=== PATIENT | male | born 1975 | race Caucasian/White ===

== ENCOUNTER 2017-08-30 23:15 | Inpatient (IN) | payer MEDICAID, OTHER ==
[~2017-08-30] VITALS: Ht 162.6 cm; Wt 76.4 kg
[2017-08-30] MEDS ORDERED: normal saline 1000ML IV soln IV ONE ×2 (23:35→23:45)
[2017-08-30] MEDS ORDERED: ondansetron/PF 4mg/2ml inj IV ONE (23:35)
[2017-08-30] MEDS ORDERED: morphine 4 MG/ML inj SYRINge IV ONE (23:35)
[2017-08-30] MEDS ORDERED: pantoprazole 40 MG vial IV ONE ×2 (23:35→23:45)
[2017-08-30] MEDS ORDERED: famotidine/PF 10 mg/ml inj IV ONE (23:45)
[2017-08-30] MEDS ORDERED: octreotide inj. 1,250 MCG in normal saline 250ml IV soln 250 ML IV ONE (23:45)
[2017-08-30 23:57] LABS: BASOPHILS % (AUTO) 0.1 % (0-1); EOSINOPHILS % (AUTO) 0 % (0-6); HEMATOCRIT 54.5 % (42.0-52.0); LYMPHOCYTES # (AUTO) 0.4 X10'3 (1.1-4.8); LYMPHOCYTES % (AUTO) 2.1 % (21-51); MEAN CORPUSCULAR HEMOGLOBIN 29.2 PG (27.0-31.0); MEAN CORPUSCULAR HGB CONC 34.1 % (33.0-36.5); MEAN CORPUSCULAR VOLUME 85.6 FL (78-98); MONOCYTES # (AUTO) 0.2 X10'3 (0-0.9); MONOCYTES % (AUTO) 1.2 % (2-12); NEUTROPHILS # (AUTO) 18.5 X10'3 (1.8-7.7); NEUTROPHILS % (AUTO) 96.6 % (42-75); PLATELET COUNT 241 X10'3 (140-440); RED BLOOD COUNT 6.37 X10'6 (4.70-6.10); RED CELL DISTRIBUTION WIDTH 13.6 % (11.5-14.5); WHITE BLOOD COUNT 19.1 X10'3 (4.5-11.0)
[2017-08-31] VITALS (9 sets, daily range): BP systolic 143–160; BP diastolic 72–98
[2017-08-31 00:07] LABS: HEMOGLOBIN 18.6 g/dl (14.0-17.9)
[2017-08-31 00:08] LABS: INR 1.1 INR; PARTIAL THROMBOPLASTIN TIME 27 SECONDS (22-32); PROTHROMBIN TIME 10.9 SECONDS (9.0-12.0)
[2017-08-31 00:11] LABS: ALANINE AMINOTRANSFERASE 34 U/L (12-78); ALBUMIN 3.9 G/DL (3.4-5.0); ALBUMIN/GLOBULIN RATIO 0.8 (1.1-1.5); ALKALINE PHOSPHATASE 99 IU/L (46-116); ANION GAP 10 (8-16); ASPARTATE AMINO TRANSFERASE 13 U/L (10-37); BILIRUBIN,TOTAL 0.5 MG/DL (0.1-1.0); BLOOD UREA NITROGEN 20 MG/DL (7-18); BUN/CREATININE RATIO 14.6 (5.4-32.0); CALCIUM 9.7 MG/DL (8.5-10.1); CHLORIDE 99 MMOL/L (99-107); CREATININE 1.37 MG/DL (0.60-1.10); GLUCOSE 152 MG/DL (70-104); LIPASE 78 U/L (73-393); MAGNESIUM 2.1 MG/DL (1.5-2.4); POTASSIUM 3.3 MMOL/L (3.5-5.1); SODIUM 141 MMOL/L (135-145); TOTAL CARBON DIOXIDE 31.9 MMOL/L (24-32); eGFR 58 ML/MIN
[2017-08-31] MEDS ORDERED: octreotide 200mcg/ml 5ml vial ONE ×2 (00:20→23:55)
[2017-08-31] MEDS: pantoprazole 40MG/NS 100ML BAG 100 ML IV SCH ×6 (00:41→23:33)
[2017-08-31] MEDS ORDERED: pantoprazole 40MG/NS 100ML BAG 100 ML IV SCH (01:00)
[2017-08-31] MEDS ORDERED: NO HOME MEDS (01:14)
[2017-08-31] MEDS ORDERED: HYDROmorphone 1 mg/ml syringe IV ONE ×2 (04:20→10:00)
[2017-08-31] MEDS ORDERED: mag hydrox/Alum hydrox/simeth 30ml oral suspension PO PRN (04:20)
[2017-08-31] MEDS ORDERED: acetaminophen 325mg tablet PO PRN ×2 (04:20)
[2017-08-31] MEDS ORDERED: HYDROmorphone inj. 0.5 MG/0.5 ML DISP.SYRIN IV PRN ×2 (04:20)
[2017-08-31] MEDS ORDERED: ondansetron/PF 4mg/2ml inj IV PRN (04:20)
[2017-08-31] MEDS ORDERED: magnesium hydroxide 30ml (MOM) UD suspension PO PRN (04:20)
[2017-08-31] MEDS: normal saline 1000ml 1,000 ML IV SCH ×3 (04:24→21:03)
[2017-08-31] MEDS ORDERED: potassium Cl 10 mEq/100mL bag IV ONE (04:25)
[2017-08-31] MEDS ORDERED: potassium Cl 40MEQ/NS 500ml 500 ML IV PRN ×2 (04:25)
[2017-08-31] MEDS ORDERED: potassium Cl 20 mEq SR tablet PO PRN ×2 (04:25)
[2017-08-31 07:12] LABS: CLARITY,URINE CLEAR (Clear); COLOR,URINE YELLOW (Yellow); GLUCOSE, URINE NEGATIVE (Neg); KETONES,URINE 15 mg/dl (Neg); LEUKOCYTE ESTERASE ,URINE NEGATIVE (Neg); NITRITES, URINE NEGATIVE (Neg); OCCULT BLOOD,URINE NEGATIVE (Neg); PROTEIN,URINE 30 mg/dl (Neg)
[2017-08-31 07:15] LABS: UA COLLECTION TYPE VOIDED
[2017-08-31] MEDS ORDERED: HYDROmorphone 1 mg/ml syringe IV PRN ×2 (07:17→07:18)
[2017-08-31 07:20] LABS: BACTERIA,URINE NONE SEEN /HPF (Neg); HYALINE CASTS 0-3 /LPF (NEGATIVE); MUCUS STRANDS MODERATE /LPF (Neg); RBC,URINE 0-2 /HPF (0-2); SQUAMOUS EPITHELIAL CELL,UR FEW /LPF (FEW)
[2017-08-31 07:21] LABS: FINE GRANULAR CAST 0-3 /LPF (NEGATIVE); SPERM FEW /HPF (NEGATIVE)
[2017-08-31] MEDS ORDERED: LORazepam 2 mg/ml vial IV ONE (09:10)
[2017-08-31 09:49] LABS: URINE AMPHETAMINE SCREEN POSITIVE (Neg); URINE BARBITUATE SCREEN NEGATIVE (Neg); URINE BENZODIAZEPINES SCREEN NEGATIVE (Neg); URINE CANNABINOID SCREEN NEGATIVE (Neg); URINE COCAINE SCREEN NEGATIVE (Neg); URINE METHADONE SCREEN NEGATIVE (Neg); URINE OPIATE SCREEN POSITIVE (Neg); URINE PHENCYCLIDINE SCREEN NEGATIVE (Neg)
[2017-08-31] MEDS ORDERED: fentaNYL/PF 50MCG/1 ML 2ML syringe ONE (12:43)
[2017-08-31] MEDS ORDERED: MIDAZolam 5mg/5ml vial ONE (12:44)
[2017-08-31] MEDS ORDERED: LIDOcaine Viscous 15ml cup ONE (12:44)
[2017-08-31] MEDS ORDERED: diatrozoate meglu/diatrozoate sod (37% iodine) 120ML oral solution PO ONE (18:00)
[2017-08-31] MEDS: diatr meglu/diatrizoate 30ml oral sol.-(3 dose) bottle PO ONE ×2 (21:03→21:04)
[2017-09-01 03:00] VITALS: BP 139/94
[2017-09-01] MEDS: pantoprazole 40MG/NS 100ML BAG 100 ML IV SCH ×3 (05:00→16:00)
[2017-09-01 06:06] LABS: BASOPHILS % (AUTO) 0.5 % (0-1); EOSINOPHILS # (AUTO) 0.2 X10'3 (0-0.9); EOSINOPHILS % (AUTO) 3.2 % (0-6); HEMATOCRIT 42.4 % (42.0-52.0); HEMOGLOBIN 14.4 g/dl (14.0-17.9); LYMPHOCYTES # (AUTO) 1.3 X10'3 (1.1-4.8); LYMPHOCYTES % (AUTO) 18.3 % (21-51); MEAN CORPUSCULAR HEMOGLOBIN 29.3 PG (27.0-31.0); MEAN CORPUSCULAR HGB CONC 33.9 % (33.0-36.5); MEAN CORPUSCULAR VOLUME 86.3 FL (78-98); MEAN PLATELET VOLUME 8.6 FL (7.4-10.4); MONOCYTES # (AUTO) 0.7 X10'3 (0-0.9); MONOCYTES % (AUTO) 9.7 % (2-12); NEUTROPHILS % (AUTO) 68.3 % (42-75); PLATELET COUNT 194 X10'3 (140-440); RED BLOOD COUNT 4.91 X10'6 (4.70-6.10); RED CELL DISTRIBUTION WIDTH 13.9 % (11.5-14.5); WHITE BLOOD COUNT 7.3 X10'3 (4.5-11.0)
[2017-09-01 06:26] LABS: ALBUMIN 2.4 G/DL (3.4-5.0); ANION GAP 6 (8-16); BLOOD UREA NITROGEN 17 MG/DL (7-18); BUN/CREATININE RATIO 14.4 (5.4-32.0); CALCIUM 7.7 MG/DL (8.5-10.1); CHLORIDE 106 MMOL/L (99-107); CREATININE 1.18 MG/DL (0.60-1.10); GLUCOSE 89 MG/DL (70-104); POTASSIUM 3.9 MMOL/L (3.5-5.1); SODIUM 138 MMOL/L (135-145); TOTAL CARBON DIOXIDE 26.2 MMOL/L (24-32); eGFR 69 ML/MIN
[2017-09-01 07:00] VITALS: BP 153/97
[2017-09-01] MEDS: normal saline 1000ml 1,000 ML IV SCH (10:22)
[2017-09-01 11:00] VITALS: BP 156/97
[2017-09-01 15:00] VITALS: BP 156/88
[2017-09-01] MEDS ORDERED: PANT40TA4 PO (15:00)
[2017-09-01] MEDS ORDERED: AMLO5TAB4 PO (15:23)
[2017-09-01] MEDS ORDERED: amLODIPine 5mg tablet PO ONE (15:25)
== END 2017-09-01 17:20 | disposition home or self-care (01) | DRG 469 ==
LOC: ER 23:16 → ED HOLD 08-31 04:19 → PCU 3S 08-31 14:56
PROVIDERS: ADMIT Internal Medicine; ATTEND Family Medicine
PROC: 0DB48ZX Excision of Esophagogastric Junction, Via Natural or Artificial Opening Endoscopic, Diagnostic (ICD-10-PCS; principal; 2017-08-31)
DX: N17.9 Acute kidney failure, unspecified (principal); K22.11 Ulcer of esophagus with bleeding; K29.71 Gastritis, unspecified, with bleeding; I10 Essential (primary) hypertension; F17.210 Nicotine dependence, cigarettes, uncomplicated; E86.0 Dehydration; K21.0 Gastro-esophageal reflux disease with esophagitis; K44.9 Diaphragmatic hernia without obstruction or gangrene; G89.29 Other chronic pain; F15.10 Other stimulant abuse, uncomplicated; F10.10 Alcohol abuse, uncomplicated; Z71.6 Tobacco abuse counseling; Z71.41 Alcohol abuse counseling and surveillance of alcoholic
CPT/HCPCS: 36415; 43239; 71045; 74176; 80048; 80053; 80305; 81001; 83690; 83735; 84132; 84484; 85025; 85610; 85730; 86885; 86900; 86901; 87070; 87088; 93005; 99285; A4620; C9113; G0500; J1170; J2060; J2250; J2270; J2354; J2405; J3010; J3480; J3490; J7030; Q9963

== ENCOUNTER 2020-04-04 19:53 | Emergency (ER) | payer MEDICAID, OTHER ==
[~2020-04-04] VITALS: Ht 162.6 cm; Wt 88.0 kg
[~2020-04-04 19:53] MED LIST: AMLO5TAB4 PO; PANT40TA54 PO
--- NOTE | 2020-04-04 20:26 | NUR ---
DID NOT TAKE BLOOD PRESSURE MEDICATION, MOTHER HAS TRIED HOME REMDIES WITH SON AND HE REFUSED OTC EAR MEDICATION
[2020-04-04] MEDS ORDERED: penicillin V potassium 500mg tablet PO ONE (20:50)
[2020-04-04] MEDS ORDERED: dexamethasone 4mg tablet PO ONE ×3 (20:50→21:10)
--- NOTE | 2020-04-04 20:56 | NUR ---
TONGUE NOTED FOR WHITE COATING SWBBWS THROAT FOR STREP PATIENT STATED IT HURT TO STICK HIS TONUGUE OUT
[2020-04-04] MEDS ORDERED: HYDR-3972 PO (21:02)
[2020-04-04] MEDS ORDERED: PENI500T2 PO (21:02)
[2020-04-04 21:09] VITALS: BP 212/194
--- NOTE | 2020-04-04 21:22 | NUR ---
Patient and notified of positive strep. oral abx given prior to dc.
== END 2020-04-04 21:24 | disposition home or self-care (01) ==
LOC: ER 19:53
DX: J36 Peritonsillar abscess (principal); H92.02 Otalgia, left ear; I10 Essential (primary) hypertension; F17.200 Nicotine dependence, unspecified, uncomplicated; Z79.899 Other long term (current) drug therapy
CPT/HCPCS: 87880; 99284